=== PATIENT | male | born 1995 | race Two or more races ===

== ENCOUNTER 2018-10-08 10:06 | Emergency (ER) | payer OTHER ==
[~2018-10-08] VITALS: Ht 177.8 cm; Wt 91.6 kg
[2018-10-08 10:20] VITALS: BP 141/91
--- NOTE | 2018-10-08 10:32 | PHYS DOC ---
Adult General Chief Complaint Chief Complaint: TOE PROBLEM HPI HPI Patient is a 23 year old male who presents with complaint of right fourth toe pain. Patient states that he injured his toe at approximately 0900 this morning. Patient states while he was attempting to groom his dog, the dog moved away from him, causing him to become frustrated. Patient states in that moment he kicked the side of the bathtub out of frustration, then started to feel immediate pain after doing this. Notes bruising to the toe and states that while at rest he is having no pain, however with weightbearing and movement he is having moderate to severe pain. Has not taking medications for symptoms. De nies any other injuries. Review of Systems Review of Systems Constitutional: Denies fever or chills [] Musculoskeletal: Right fourth toe pain [] Integument: Denies rash or skin lesions [] Neurologic: Numbness to right fourth toe[] All other systems were reviewed and found to be within normal limits, except as documented in this note. Allergies Allergies Allergies Coded Allergies Type Severity Reaction Last Updated Verified No Known Drug Allergies 10/08/18 No Physical Exam Physical Exam Constitutional: Well developed, well nourished, no acute distress, non-toxic appearance. [] Skin: Warm, dry, no erythema, no rash. [] Extremities: Right fourth toe diffusely ecchymotic, normal alignment, direct tenderness to palpation, range of motion not tested secondary to pain, capillary refill less than 2 seconds, no tenderness to palpation in the forefoot or midfoot, ankle exam normal. [] Neurologic: Alert and oriented X 3, decrease in light touch to tip of right fourth toe. [] Current Patient Data Vital Signs Vital Signs Date Time Temp Pulse Resp B/P (MAP) Pulse Ox O2 Delivery O2 Flow Rate FiO2 10/08/18 10:20 98.1 57 16 98 Room Air Lab Results Not performed EKG EKG Not performed[] Radiology/Procedures Radiology/Procedures [address] [address] IMAGING REPORT Signed PATIENT: JALIL GARCIA V ACCOUNT: [id number] : 1995 LOCATION: ER AGE: 23 SEX: M EXAM STATUS: REG ER ORD. PHYSICIAN: JOSE LUIS CHAMBERLAIN MD REASON: right 3rd and 4th toe injury PROCEDURE: FOOT RIGHT 3V RIGHT FOOT AP LATERAL OBLIQUE Clinical Indication: Third and fourth toe injury. Comparison: None. Findings: There is acute traumatic nondisplaced transverse fracture near the base of the fourth toe distal phalanx. There is no intra-articular extension. The bony alignment is normal. Mineralization is normal. No bony erosion. Tiny plantar calcaneal bone spur. There is no soft tissue abnormality. IMPRESSION: Acute traumatic nondisplaced fracture near the base of the fourth toe distal phalanx. Electronically signed by: Castro Alas MD (10/08/2018 10:48 AM) [id number] DICTATED AND SIGNED BY: CASTRO ALAS MD DATE: 10/08/18 1048 CC: JOSE LUIS CHAMBERLAIN MD; PCP,NO ~ [] Course & Med Decision Making Course & Med Decision Making Pertinent Labs and Imaging studies reviewed. (See chart for details) Patient's x-ray confirmed distal phalanx fracture of the fourth toe. Patient placed in postop orthopedic shoe. Treated with [place] in the emergency department. Prescribed [place] for continued outpatient treatment of pain. Advised follow-up with primary doctor in 1-2 weeks for reevaluation and recommended return to emergency department for any worsening symptoms. Patient voiced understanding and in agreement with treatment plan.[] Dragon Disclaimer Dragon Disclaimer This electronic medical record was generated, in whole or in part, using a voice recognition dictation system. Departure Departure: Impression: Primary Impression: Toe fracture, right Disposition: 01 HOME, SELF-CARE Condition: IMPROVED Patient Instructions: Toe Fracture Additional Instructions: Follow-up with your primary doctor in 1-2 weeks for reevaluation. Return to the emergency department for any worsening symptoms. Scripts Hydrocodone Bit/Acetaminophen (NORCO 5-325 TABLET) 1 Each Tablet 1 TAB PO Q6HRS PRN for PAIN, #20 TAB Prov: JOSE LUIS CHAMBERLAIN MD 10/08/18 Problem Qualifiers Primary Impression: Toe fracture, right Encounter type: initial encounter Toe: lesser toe Fracture type: closed Phalanx: distal Fracture alignment: nondisplaced Qualified Codes: S92.534A - Nondisplaced fracture of distal phalanx of right lesser toe(s), initial encounter for closed fracture JOSE LUIS CHAMBERLAIN MD Oct 08, 2018 10:32
--- NOTE | 2018-10-08 10:51 | RAD ---
RIGHT FOOT AP LATERAL OBLIQUE Clinical Indication: Third and fourth toe injury. Comparison: None. Findings: There is acute traumatic nondisplaced transverse fracture near the base of the fourth toe distal phalanx. There is no intra-articular extension. The bony alignment is normal. Mineralization is normal. No bony erosion. Tiny plantar calcaneal bone spur. There is no soft tissue abnormality. IMPRESSION: Acute traumatic nondisplaced fracture near the base of the fourth toe distal phalanx. Electronically signed by: Castro Pan MD (10/08/2018 10:48 AM) [id number]
[2018-10-08] MEDS ORDERED: HYDR-3165 PO (11:10)
[2018-10-08] MEDS: HYDROcodone/APAP 5/325MG 1 TAB TABLET PO ONE (11:25)
== END 2018-10-08 11:27 | disposition home or self-care (01) ==
LOC: ER 10:06
DX: S92.534A Nondisplaced fracture of distal phalanx of right lesser toe(s), initial encounter for closed fracture (principal); W22.8XXA Striking against or struck by other objects, initial encounter; Y93.K3 Activity, grooming and shearing an animal; Y92.89 Other specified places as the place of occurrence of the external cause; Y99.8 Other external cause status
CPT/HCPCS: 73630; 99284